=== PATIENT | female | born 1990 | race Hispanic/Latino ===

== ENCOUNTER 2016-04-13 13:42 | Emergency (ER) | payer OTHER ==
--- NOTE | 2016-04-13 14:40 | EDDOCDS ---
Nurse's Notes [facility] Name: Sadie Mcconnell Age: 26 yrs Sex: Female : 1990 Arrival Date: 04/13/2016 Time: 13:42 Bed TR8 Private MD: JOHN Frances Diagnosis: Acute nasopharyngitis [common cold];Otalgia and effusion of ear Presentation: 04/13 14:04 Presenting complaint: Patient states: Cough, intermittent bilateral ear pain and sores mlb1 around nose began today. Adult Sepsis Screening: The patient does not have new or worsening altered mentation. Patient's respiratory rate is less than 22. Systolic blood pressure is greater than 100. Patient has a qSOFA score of 0- Negative Sepsis Screen. Suicide/Homicide risk assessment- the patient denies having any suicidal and/or homicidal ideations and does not present with any other emotional, behavioral or mental health complaints. Status: The patient is a dependent. Transition of care: patient was not received from another setting of care. 14:04 Acuity: ESPERANZA Level 4 mlb1 14:04 Method Of Arrival: Walkin/Carried/Asstd mlb1 Triage Assessment: 14:05 General: Appears in no apparent distress, comfortable, Behavior is appropriate for age, mlb1 cooperative. Pain: Denies pain. Pt Declines HIV testing. 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 none - PMHx: none; - PSHx: none; - Social history: Smoking status: Patient states was never smoker of tobacco. No barriers to communication noted, The patient speaks fluent Thai, Speaks appropriately for age. - Family history: Not pertinent. - : The pt / caregiver states he / she is not on anticoagulants. Home medication list is obtained from the patient. - Exposure Risk Screening:: None identified. Screenin:38 Screening information is obtained from the patient. Primary language is Thai. Fall dls risk: No risks identified. Assistance ADL's: requires no assistance with activities of daily living. Abuse/DV Screen: The patient / caregiver reports he/she is: not in a situation that causes fear, pain or injury. Nutritional screening: No deficits noted. Advance Directives: Currently, there is no health care proxy. There is no active DNR order. There is no living will. 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 Advance directive information has not previously been placed in an [facility] medical record. home support is adequate. Assessment: 14:37 General: Appears in no apparent distress, slender, well developed, well nourished, well dls groomed, Behavior is cooperative. Awake, alert, oriented. Skin warm and dry. Moves all extremities. Bilateral breath sounds clear. Respirations unlabored. Abdomen soft, non-tender. No apparent distress. The patient / caregiver is instructed regarding the plan of care and ED course. Vital Signs: 13:44 BP 112 / 81; Pulse 121; Resp 17; Temp 98.7(O); Pulse Ox 99% on R/A; Weight 50.35 kg lr2 (R); Height 5 ft. 1 in. (154.94 cm) (R); Pain 8/10; 14:35 BP 108 / 70; Pulse 81; Resp 18; Temp 99.4(O); Pulse Ox 94% on R/A; Pain 0/10; dem1 13:44 Body Mass Index 20.97 (50.35 kg, 154.94 cm) lr2 Vitals: 13:44 Log In Time: April 13, 2016 at 13:42. lr2 ED Course: 13:43 Patient visited by Daniela Lopez. lr2 13:43 Patient moved to Waiting lr2 13:[address] [facility] is Private Physician. lr2 13:45 Patient moved to Pre RCE lr2 14:04 Patient visited by Garry Wynn RN. mlb1 14:04 Triage Initiated mlb1 14:05 Patient visited by Garry Wynn RN. mlb1 14:05 Patient moved to I8 / 16 mlb1 14:06 [facility]. ke 14:06 Patient visited by Uri Low FNP. ke 14:07 Patient visited by Uri Low FNP. ke 14:[address] [facility] is Referral Physician. ke 14:36 Patient visited by Shon Apodaca. dem1 14:37 Patient moved to TR8 dem1 14:38 Patient has correct armband on for positive identification. Bed in low position. Call dls light in reach. 14:39 No IV's were initiated during this patient's visit. No procedures done that require dls assistance. Order Results: There are currently no results for this order. Outcome: 14:23 Discharge ordered by Provider. mitchell 14:38 The following High Risk Discharge criteria are identified: None. Discharged to home dls ambulatory. Condition: stable. Discharge instructions given to patient, Instructed on discharge instructions, follow up and referral plans. medication usage, Demonstrated understanding of instructions, medications, Pt was receptive of discharge instructions/ teaching. Prescriptions given X 2. No special radiology studies were completed. 14:39 Discharge Assessment: Patient awake, alert and oriented x 3. No cognitive and/or dls functional deficits noted. Patient verbalized understanding of disposition instructions. patient administered narcotics - no. The following High Risk Discharge criteria are identified: None. Discharged to home ambulatory. Property sent home with patient. 14:40 Patient left the ED. dls Signatures: Talisha Ralph, RN RN dls Uri Low, GLASSWARE VERIFIER GLASSWARE VERIFIER Garry Hopper RN RN mlShon Martinez Laura lr2 Corrections: (The following items were deleted from the chart) 14:06 14:04 Presenting complaint: Patient states: Cough, bilateral ear pain and sores around mlb1 nose began today mlb1 MTDD
--- NOTE | 2016-04-13 14:40 | EDDOCDS ---
Physician Documentation [facility] Name: Sadie Mcconnell Age: 26 yrs Sex: Female : 1990 Arrival Date: 04/13/2016 Time: 13:42 Bed TR8 Private MD: LEONEL Frances Disposition: 04/13 14:25 The patient was provided with a printed prescription due complicated or complex ke instructions that prevent electronic transmission. Disposition: 04/13/16 14:23 Discharged to Home/Self Care. Impression: Acute nasopharyngitis [common cold], Otalgia and effusion of ear. - Condition is Stable. - Discharge Instructions: Viral Infections. - Prescriptions for Abreva - apply to affected area 1 application by TOPICAL route 4 times per day for 3 days; 1 tube. Claritin- D 12 Hour 5-120 mg Oral Tablet Sustained Release 12 hr - take 1 tablet by ORAL route every 12 hours As needed; 30 tablet. - Medication Reconciliation, Local Pharmacy Hours form. - Follow up: LEONEL Frances; When: 4 - 5 days; Reason: Recheck today's complaints, Continuance of care. - Problem is an ongoing problem. - Symptoms are unchanged. Historical: - Allergies: no known allergies; - Home Meds: 1. none - PMHx: none; - PSHx: none; - Social history: Smoking status: Patient states was never smoker of tobacco. No barriers to communication noted, The patient speaks fluent Fijian, Speaks appropriately for age. - Family history: Not pertinent. - : The pt / caregiver states he / she is not on anticoagulants. Home medication list is obtained from the patient. - Exposure Risk Screening:: None identified. 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 1 in. (154.94 cm) (R); Pain 8/10; 14:35 BP 108 / 70; Pulse 81; Resp 18; Temp 99.4(O); Pulse Ox 94% on R/A; Pain 0/10; dem1 13:44 Body Mass Index 20.97 (50.35 kg, 154.94 cm) lr2 Signatures: Talisha Ralph, RN RN dls Uri Low, NARROW FABRIC CALENDERER NARROW FABRIC CALENDERER Garry Hopper RN RN mlb1 MTDD
--- NOTE | 2016-04-15 15:40 | EDDOCDS ---
Physician Documentation [facility] Name: Sadie Mcconnell Age: 26 yrs Sex: Female : 1990 Arrival Date: 04/13/2016 Time: 13:42 Bed TR8 Private MD: LEONEL Frances Disposition: 04/13 14:25 The patient was provided with a printed prescription due complicated or complex ke instructions that prevent electronic transmission. Disposition: 04/13/16 14:23 Discharged to Home/Self Care. Impression: Acute nasopharyngitis [common cold], Otalgia and effusion of ear. - Condition is Stable. - Discharge Instructions: Viral Infections. - Prescriptions for Abreva - apply to affected area 1 application by TOPICAL route 4 times per day for 3 days; 1 tube. Claritin- D 12 Hour 5-120 mg Oral Tablet Sustained Release 12 hr - take 1 tablet by ORAL route every 12 hours As needed; 30 tablet. - Medication Reconciliation, Local Pharmacy Hours form. - Follow up: LEONEL Frances; When: 4 - 5 days; Reason: Recheck today's complaints, Continuance of care. - Problem is an ongoing problem. - Symptoms are unchanged. Historical: - Allergies: no known allergies; - Home Meds: 1. none - PMHx: none; - PSHx: none; - Social history: Smoking status: Patient states was never smoker of tobacco. No barriers to communication noted, The patient speaks fluent Prydeinig, Speaks appropriately for age. - Family history: Not pertinent. - : The pt / caregiver states he / she is not on anticoagulants. Home medication list is obtained from the patient. - Exposure Risk Screening:: None identified. 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 1 in. (154.94 cm) (R); Pain 8/10; 14:35 BP 108 / 70; Pulse 81; Resp 18; Temp 99.4(O); Pulse Ox 94% on R/A; Pain 0/10; dem1 13:44 Body Mass Index 20.97 (50.35 kg, 154.94 cm) lr2 MDM: 15:47 T-Sheet-- Draft Copy was scanned into [employer] and attached to record. klr Signatures: Talisha Ralph RN RN dls Uri Low FNP FNP Garry Hopper RN RN mlJuly Marlow The chart was reviewed and I authenticate all verbal orders and agree with the evaluation and treatment provided.Attachments: 15:47 T-Sheet-- Draft Copy klr Chart Complete MTDD
--- NOTE | 2016-04-15 15:40 | EDDOCDS ---
Nurse's Notes [facility] Name: Sadie Mcconnell Age: 26 yrs Sex: Female : 1990 Arrival Date: 04/13/2016 Time: 13:42 Bed TR8 Private MD: JOHN Frances Diagnosis: Acute nasopharyngitis [common cold];Otalgia and effusion of ear Presentation: 04/13 14:04 Presenting complaint: Patient states: Cough, intermittent bilateral ear pain and sores mlb1 around nose began today. Adult Sepsis Screening: The patient does not have new or worsening altered mentation. Patient's respiratory rate is less than 22. Systolic blood pressure is greater than 100. Patient has a qSOFA score of 0- Negative Sepsis Screen. Suicide/Homicide risk assessment- the patient denies having any suicidal and/or homicidal ideations and does not present with any other emotional, behavioral or mental health complaints. Status: The patient is a dependent. Transition of care: patient was not received from another setting of care. 14:04 Acuity: ESPERANZA Level 4 mlb1 14:04 Method Of Arrival: Walkin/Carried/Asstd mlb1 Triage Assessment: 14:05 General: Appears in no apparent distress, comfortable, Behavior is appropriate for age, mlb1 cooperative. Pain: Denies pain. Pt Declines HIV testing. 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 none - PMHx: none; - PSHx: none; - Social history: Smoking status: Patient states was never smoker of tobacco. No barriers to communication noted, The patient speaks fluent South Sudanese, Speaks appropriately for age. - Family history: Not pertinent. - : The pt / caregiver states he / she is not on anticoagulants. Home medication list is obtained from the patient. - Exposure Risk Screening:: None identified. Screenin:38 Screening information is obtained from the patient. Primary language is South Sudanese. Fall dls risk: No risks identified. Assistance ADL's: requires no assistance with activities of daily living. Abuse/DV Screen: The patient / caregiver reports he/she is: not in a situation that causes fear, pain or injury. Nutritional screening: No deficits noted. Advance Directives: Currently, there is no health care proxy. There is no active DNR order. There is no living will. There is no Power of Supervisor Die Casting. Advance directive information has not previously been placed in an [facility] medical record. home support is adequate. Assessment: 14:37 General: Appears in no apparent distress, slender, well developed, well nourished, well dls groomed, Behavior is cooperative. Awake, alert, oriented. Skin warm and dry. Moves all extremities. Bilateral breath sounds clear. Respirations unlabored. Abdomen soft, non-tender. No apparent distress. The patient / caregiver is instructed regarding the plan of care and ED course. Vital Signs: 13:44 BP 112 / 81; Pulse 121; Resp 17; Temp 98.7(O); Pulse Ox 99% on R/A; Weight 50.35 kg lr2 (R); Height 5 ft. 1 in. (154.94 cm) (R); Pain 8/10; 14:35 BP 108 / 70; Pulse 81; Resp 18; Temp 99.4(O); Pulse Ox 94% on R/A; Pain 0/10; dem1 13:44 Body Mass Index 20.97 (50.35 kg, 154.94 cm) lr2 Vitals: 13:44 Log In Time: April 13, 2016 at 13:42. lr2 ED Course: 13:43 Patient visited by Daniela Lopez. lr2 13:43 Patient moved to Waiting lr2 13:45 [facility] is Private Physician. lr2 13:45 Patient moved to Pre RCE lr2 14:04 Patient visited by Garry Wynn RN. mlb1 14:04 Triage Initiated mlb1 14:05 Patient visited by Garry Wynn RN. mlb1 14:05 Patient moved to I8 / 16 mlb1 14:06 [facility] ke 14:06 Patient visited by Uri Low FNP. ke 14:07 Patient visited by Uri Low FNP. ke 14:22 [facility] is Referral Physician. ke 14:36 Patient visited by Shon Apodaca. dem1 14:37 Patient moved to TR8 dem1 14:38 Patient has correct armband on for positive identification. Bed in low position. Call dls light in reach. 14:39 No IV's were initiated during this patient's visit. No procedures done that require dls assistance. 15:47 T-Sheet-- Draft Copy was scanned into [email or web address] and attached to record. tal Order Results: There are currently no results for this order. Outcome: 14:23 Discharge ordered by Provider. mitchell 14:38 The following High Risk Discharge criteria are identified: None. Discharged to home dls ambulatory. Condition: stable. Discharge instructions given to patient, Instructed on discharge instructions, follow up and referral plans. medication usage, Demonstrated understanding of instructions, medications, Pt was receptive of discharge instructions/ teaching. Prescriptions given X 2. No special radiology studies were completed. 14:39 Discharge Assessment: Patient awake, alert and oriented x 3. No cognitive and/or dls functional deficits noted. Patient verbalized understanding of disposition instructions. patient administered narcotics - no. The following High Risk Discharge criteria are identified: None. Discharged to home ambulatory. Property sent home with patient. 14:40 Patient left the ED. dls Signatures: Talihsa Ralph RN RN Uri Juarez FNP Garry Lauren RN RN mlShon Martinez Kathie klr Ross, Laura lr2 Corrections: (The following items were deleted from the chart) 14:06 14:04 Presenting complaint: Patient states: Cough, bilateral ear pain and sores around mlb1 nose began today mlb1 Chart Complete MTDD
--- NOTE | 2016-04-15 15:40 | EDDOCDS ---
Physician Documentation [facility] Name: Sadie Mcconnell Age: 26 yrs Sex: Female : 1990 Arrival Date: 04/13/2016 Time: 13:42 Bed TR8 Private MD: LEONEL Frances Disposition: 04/13 14:25 The patient was provided with a printed prescription due complicated or complex ke instructions that prevent electronic transmission. Disposition: 04/13/16 14:23 Discharged to Home/Self Care. Impression: Acute nasopharyngitis [common cold], Otalgia and effusion of ear. - Condition is Stable. - Discharge Instructions: Viral Infections. - Prescriptions for Abreva - apply to affected area 1 application by TOPICAL route 4 times per day for 3 days; 1 tube. Claritin- D 12 Hour 5-120 mg Oral Tablet Sustained Release 12 hr - take 1 tablet by ORAL route every 12 hours As needed; 30 tablet. - Medication Reconciliation, Local Pharmacy Hours form. - Follow up: LEONEL Frances; When: 4 - 5 days; Reason: Recheck today's complaints, Continuance of care. - Problem is an ongoing problem. - Symptoms are unchanged. Historical: - Allergies: no known allergies; - Home Meds: 1. none - PMHx: none; - PSHx: none; - Social history: Smoking status: Patient states was never smoker of tobacco. No barriers to communication noted, The patient speaks fluent Greek, Speaks appropriately for age. - Family history: Not pertinent. - : The pt / caregiver states he / she is not on anticoagulants. Home medication list is obtained from the patient. - Exposure Risk Screening:: None identified. 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 1 in. (154.94 cm) (R); Pain 8/10; 14:35 BP 108 / 70; Pulse 81; Resp 18; Temp 99.4(O); Pulse Ox 94% on R/A; Pain 0/10; dem1 13:44 Body Mass Index 20.97 (50.35 kg, 154.94 cm) lr2 MDM: 15:47 T-Sheet-- Draft Copy was scanned into [employer] and attached to record. klr Signatures: Talisha Ralph RN RN dls Uri Low FNP FNP Garry Hopper RN RN mlJuly Marlow The chart was reviewed and I authenticate all verbal orders and agree with the evaluation and treatment provided.Attachments: 15:47 T-Sheet-- Draft Copy klr Chart Complete MTDD
== END 2016-04-13 14:40 | disposition home or self-care (01) ==
LOC: M ED 13:42
DX: J00 Acute nasopharyngitis [common cold] (principal)

== ENCOUNTER 2016-04-16 22:19 | Emergency (ER) | payer OTHER ==
[~2016-04-16] VITALS: Ht 154.9 cm; Wt 51.3 kg
[2016-04-17] MEDS ORDERED: AMOX500C PO (01:20)
[2016-04-17] MEDS ORDERED: MOTR200T44 PO (01:22)
[2016-04-17] MEDS ORDERED: AMOXICILLIN 500 MG CAP PO ONE (01:30)
[2016-04-17] MEDS ORDERED: IBUPROFEN 400 MG TAB PO ONE (01:30)
[2016-04-17 01:41] VITALS: BP 120/83
== END 2016-04-17 01:47 | disposition home or self-care (01) ==
LOC: M ED 23:38
DX: H66.91 Otitis media, unspecified, right ear (principal)

== ENCOUNTER → 2016-11-14 | Outpatient (CLI) | payer OTHER ==
[~2016-11-14] MED LIST: AMOX500C PO; MOTR200T44 PO
--- NOTE | 2016-11-15 02:05 | REP ---
Clinical: Periumbilical pain. Technique: Real time bowman scale ultrasound examination using linear high frequency transducer. Findings: Directed ultrasound examination of the umbilical region demonstrates a small 7 mm fat containing umbilical hernia measuring up to 10 mm on Valsalva. Hernia is nonreducible with transducer pressure. Impression: Small fat containing umbilical hernia. Signed by Jordan Montero MD 11/15/2016 01:57 A
== END ==
LOC: M RAD 10:55
PROVIDERS: ATTEND Internal Medicine
DX: R10.817 Generalized abdominal tenderness (principal)